=== PATIENT | male | born 1995 | race Caucasian/White ===

== ENCOUNTER → 2017-04-04 | Outpatient (CLI) | payer OTHER ==
[~2017-04-04] MED LIST: PRD20T PO
== END ==
LOC: PREOP 04-03 05:38
PROVIDERS: ATTEND Internal Medicine
DX: Z01.818 Encounter for other preprocedural examination (principal); R19.7 Diarrhea, unspecified; R63.4 Abnormal weight loss; K62.5 Hemorrhage of anus and rectum; R10.84 Generalized abdominal pain

== ENCOUNTER 2017-04-05 08:56 | Day surgery (SDC) | payer OTHER ==
--- NOTE | 2017-04-04 06:26 | HISTORY AND PHYSICAL ---
DATE OF SERVICE: REPORT TITLE: Colonoscopy H and P HISTORY OF PRESENT ILLNESS: The patient is a pleasant 22-year-old white male, referred from [facility] by Dr. Gupta for evaluation of a 4-month history of diarrhea, abdominal pain with nausea and intermittent bright red blood per rectum. The patient reports anywhere from four to six loose stools with cramping initially in the lower abdominal area starting four months ago. He has had some intermittent low-grade fever and progressive fatigue with this. There was not any antecedent antibiotic therapy that he recalls and he has had no previous problems with diarrhea. He denies any travel history and workup at the end of January included a normal CBC with hemoglobin of 12.2, a normal chemistry panel save for a blood sugar of 103, but likely nonfasting. TSH was normal at 1.7 and a sed rate was mildly elevated at that time at 28. He then underwent stool studies for enteric pathogens and C. difficile as well as ova and parasites that were reportedly negative. He was empirically dispensed metronidazole prior to that 500 b.i.d. for seven days with no improvement in symptomatology. FAMILY HISTORY: He is not aware of any family history of inflammatory bowel disease or GI tract malignancy. PAST MEDICAL HISTORY: He takes no medication. He had tried dicyclomine, which did not improve his symptoms. He had a past history of a head trauma related intracerebral bleed. He was hospitalized for 2 days and released without any known neurologic sequelae. 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 PHYSICAL EXAMINATION: GENERAL: Reveals a slightly pale-appearing white male, pleasant and articulate, in no acute distress. VITAL SIGNS: Blood pressure was 112/82 with a heart rate of 76 and regular. His conjunctivae revealed no evidence for pallor or icterus. NECK: Revealed no JVD, adenopathy, bruits or thyroid abnormality to palpation. CHEST: Clear. CARDIOVASCULAR: Reveal a regular rate and rhythm without murmur, S3 or S4. ABDOMEN: Soft, supple, currently nontender. He is a thin white male and reports that his weight is down 5 pounds over the past 2 months due to loss of appetite. No mass or organomegaly is noted. Bowel sounds are positive. EXTREMITIES: Reveal no cyanosis, clubbing or edema. SKIN: Evaluation reveals no suspicious nevi, rashes or telangiectasia. ASSESSMENT AND PLAN: Chronic diarrhea with weight loss and rectal bleeding. These findings in light of negative stool studies are concerning for underlying inflammatory bowel disease. The patient is set up for colonoscopy on 04/05/2017, this Saturday. Prep instructions were given and questions answered. With this evaluation and review of the electronic medical record, 45 minutes of my care time was spent with another 15 minutes of staff time in going over prep instructions and setting up colonoscopy. I thank you for the referral of this pleasant gentleman. Job ID: [id number] DocumentID: [id number] Dictated Date: 04/01/2017 16:49:49 Client Reporting Associate Date: 04/01/2017 18:05:15 Dictated By: TRACE HULL MD
[~2017-04-05] VITALS: Ht 172.7 cm; Wt 61.2 kg
[2017-04-05] MEDS ORDERED: 1/2 NS IV SOLUTION 1,000 ML IV ONE ×2 (09:44→09:45)
[2017-04-05] MEDS ORDERED: MIDAZOLAM 2 MG/2 ML (VERSED) VIAL IVP PRN (09:45)
[2017-04-05] MEDS ORDERED: fentaNYL INJECTION 100 MCG/2 ML AMP IVP PRN (09:45)
[2017-04-05 10:00] VITALS: BP 118/80
--- NOTE | 2017-04-05 10:26 | Pre-Op Note & Conscious Sedat ---
Pre-Operative Progress Note H&P Reviewed The H&P was reviewed, patient examined and no changes noted. Date H&P Reviewed: Apr 05, 2017 Time H&P Reviewed: 10:26 Conscious Sedation Pre-Proced ASA Class: 2 Airway Mallampati Classification: ([place] appropriate class) I. II. III, IV Lungs Heart ASA score ASA 1: a normal healthy patient ASA 2: a patient with a mild systemic disease (mid diabetes, controlled hypertension, obesity ASA 3: a patient with a severe systemic disease that limits activity (angina , COPD, prior Myocardial infarction) ASA 4: a patient with an incapacitating disease that is a constant threat to life (CHF, renal failure) ASA 5: a moribund patient not expected to survive 24 hrs. (ruptured aneurysm) ASA 6: a declared brain patient whose organs are being harvested. For emergent operations, add the letter E after the classification Grade 1 Sedation Plan: Analgesia, Amnesia, Plan communicated to team members, Discussed options with patient/fam, Discussed risks with patient/fam Note The patient is an appropriate candidate to undergo the planned procedure, sedation, and anesthesia. The patient immediately re-assessed prior to indication. TRACE HULL MD Apr 05, 2017 10:26
[2017-04-05] MEDS ORDERED: MIDAZOLAM 2 MG/2 ML (VERSED) VIAL ONE ×3 (10:33)
[2017-04-05] MEDS ORDERED: LIDOCAINE JELLY 2% (XYLOCAINE) 5 ML TUBE ONE (10:34)
[2017-04-05] MEDS ORDERED: fentaNYL INJECTION 100 MCG/2 ML AMP ONE ×2 (10:34)
[2017-04-05] MEDS ORDERED: PRD20T PO (11:50)
[2017-04-05 12:00] VITALS: BP 105/68
[2017-04-05] MEDS ORDERED: LIDOCAINE JELLY 2% (XYLOCAINE) 5 ML TUBE TOP ONE (12:15)
[2017-04-05 12:30] VITALS: BP 110/69
[2017-04-05 12:40] VITALS: BP 110/69
--- NOTE | 2017-04-07 08:24 | OPERATIVE REPORT ---
DATE OF SERVICE: COLONOSCOPY SUMMARY INDICATIONS FOR THE PROCEDURE: The patient is a 22-year-old white male referred for diagnostic colonoscopy for chronic diarrhea with intermittent bright red blood per rectum. PROCEDURE IN DETAIL: The patient was placed in left lateral decubitus position. Prior to undergoing colonoscopy, digital rectal evaluation was performed. Anal sphincter tone was normal and the perianal reflex was intact. Prostate was normal in size, anodular and nontender to digital inspection. No abnormalities on additional inspection of the anal canal or distal rectal vault. The colonoscope was then inserted into the rectum under direct visualization, advanced to the cecum. The cecum was identified by identification of the ileocecal valve and cecal strap. The terminal ileum was intubated and distal 10 cm of terminal ileum were inspected as well. Photographic documentation was obtained. A careful inspection was made as the colonoscope was withdrawn. Patient tolerated the procedure well. FINDINGS: The patient exhibited pancolitis on today's evaluation. The entire colon was granular in appearance with loss of usual vascular markings. There were scattered areas of erosion without evidence for polyps or pseudopolyps. No diverticulum were identified. There was inflammation of the ileocecal valve of the terminal ileum, mid to distal 10 cm of terminal ileum were normal to gross inspection as well. Biopsies from the ascending colon and rectum were obtained and submitted for histopathology. ASSESSMENT OF FINDINGS: This patient's history with today's endoscopic findings highly suggest ulcerative colitis with pancolonic involvement. The patient has had negative stool cultures and C. diff toxinstudies. We will initiate prednisone 30 mg p.o. b.i.d. p.c. Side effects of the medication were discussed with the patient and he is to call if he is having any difficulty. Discussion was had with his girlfriend who was present as well. I took the liberty of having him return to see me in the office in 2 weeks for monitoring and initiate a prednisone taper with initiation of additional remittive therapy after biopsy results are available. I thank you for the referral of this pleasant gentleman. Job ID: [id number] DocumentID: [id number] Dictated Date: 04/05/2017 12:35:49 Cartridge Assembling Machine Adjuster Date: 04/06/2017 01:53:00 Dictated By: TRACE HULL MD MTDEric
== END 2017-04-05 12:40 | disposition home or self-care (01) ==
LOC: ENDO 08:56
PROVIDERS: ATTEND Internal Medicine
DX: K51.00 Ulcerative (chronic) pancolitis without complications (principal)